=== PATIENT | male | born 1990 | race Caucasian/White ===

== ENCOUNTER → 2017-06-20 | Outpatient (CLI) | payer SELFPAY ==
--- NOTE | 2017-06-20 14:18 | DI ---
US ABDOMEN COMPLETE,06/20/2017 9:31 AM: Clinical History: Left upper quadrant pain Previous Exam: August 29, 2006 Findings: Multiple grayscale and color Doppler sonographic images are obtained through the abdomen, and demonst rates diffuse fatty infiltration of the liver. The aorta and inferior vena cava are unremarkable. Visualized portions of the pancreas are not well e valuated, but there is mild diffuse echogenicity of the pancreas. The common bile duct measures 4 mm. The gallbladder is normal with the gallbladder wall measuring 2 mm. There are no stones. The right kidney is normal measuring 10.3 cm in length. The left kidney is also normal measuring 12.0 cm in length. The spleen is normal. Impression: Mild fatty infiltration of the liver otherwise unremarkable.
== END ==
LOC: US 09:23
PROVIDERS: ATTEND Obstetrics & Gynecology Gynecology
DX: R10.12 Left upper quadrant pain (principal); K76.0 Fatty (change of) liver, not elsewhere classified
CPT/HCPCS: 76700